=== PATIENT | male | born 1965 | race Caucasian/White ===

== ENCOUNTER 2017-01-23 07:00 | Day surgery (SDC) | payer MEDICARE, OTHER ==
[~2017-01-23] VITALS: Ht 180.3 cm; Wt 120.2 kg
[~2017-01-23 07:00] MED LIST: 0.9% Sodium Chloride 1,000 ML IV SCH; IBUP200C11 PO; Sodium Chloride LOK Flush 10 mL Syringe IV PRN; fentaNYL-PF 50 mCg/mL 2 mL Inj IVPUSH PRN
[2017-01-23 07:31] VITALS: BP 139/83; PULSE 63; RESP 16; O2SAT 95
--- NOTE | 2017-01-23 08:38 | PCM.ENDEGD ---
EGD Date of Service: Jan 23, 2017 Physician Robin Manning MD Pre Procedure Diagnosis: Dyspepsia Post Procedure Dx & Findings: Duodenitis Procedure Esophagogastroduodenoscopy PROCEDURE IN DETAIL: After proper sedation, Olympus video endoscope was inserted into patient's mouth and esophagus was successfully intubated. Scope introduced esophagus. Esophagus showed normal shiny whitish mucosa consistent with squamous cell component. Z line was intact at 40 cm from the incisors. Scope further advanced to the stomach. Stomach showed normal shiny mucosa with normal appearing rugae folds without any ulcer mass erosion. Cardia fundus body antrum pylorus were all visualized. Retroflexion was done. Stomach was easily inflated and deflatable using air. Scope further advanced to the distal duodenum. Duodenum revealed normal villous structures with normal appearing folds without any mass ulcer erosion. However did duodenal bulb revealed redness edema consistent with duodenitis. Biopsies obtained. Impression Duodenitis Recommendation NSAIDs should be stopped Prilosec 20 mg once a day for 8 weeks. Presedation Assessment Risks and Benefits Informed consent was obtained from the patient after all risks and benefits including but not limited to drug reaction, infection, pain, bleeding, perforation, as well as alternatives were discussed. Patient monitoring Continuous pulse oximetry, cardiac monitoring, blood pressure monitoring, IV access, and oxygen at 2L per nasal cannula. Complications There were no periprocedural complications identified. Post Procedure Plan Post Procedure Recommendations 1. Restrict activities today. 2. Resume normal activities in the morning. 3. Resume medications. 4. GERD behavioral modification: - Avoid fatty, acidic, spicy, large meals - Do not lie down after meals - Do not eat or drink anything for at least 2 1/2 hours before going to bed at night - Discontinue tobacco and alcohol - Decrease or avoid caffeine - Avoid chocolate and mints - Decrease weight - Avoid aspirin and non steroidal anti-inflammatory agents (NSAID) such as Aleve, Advil, Mobic, Naproxen, Ibuprofen, etc 5. Add proton pump inhibitor. Take 30 minutes before 1st meal of the day. 6. Patient informed of normal post procedure side effects as bloating, drowsiness, blood streaking in the stool 7. If gastric biopsy reveal H.pylori, continue with appropriate treatment 8. If small bowel biopsy reveals celiac, continue with appropriate treatment 9. Please don't hesitate to call me with any questions Robin Manning MD Jan 23, 2017 08:38
--- NOTE | 2017-01-23 08:39 | PCM.ENDCOL ---
Colonoscopy Date of Service: Jan 23, 2017 Physician Robin Manning MD Pre Procedure Diagnosis: Screening constipation Post Procedure Dx & Findings: Polyp hemorrhoids and diverticulosis Procedure Colonoscopy PROCEDURE IN DETAIL: Prep adequate Withdrawal time 17 minutes After unremarkable rectal examination the Olympus video colonoscope was inserted patient's anal canal and was advanced to cecum. Landmarks were identified including the ileocecal valve and appendiceal orifice. Scope was withdrawn systematically. Visualized colonic mucosa showed healthy shiny mucosa with normal healthy-appearing vasculature. In the sigmoid colon there was a 2 cm polyp with a stalk. This was removed completely using hot snare. One clip deployed. Patient had multiple diverticula lie in the sigmoid colon as well as in the ascending colon. In the rectum retroflexion was done which showed hemorrhoids. Anal canal was inspected carefully on the way out and hemorrhoids noted. Impression Polyp 1 status post complete removal. This was 2 cm. Diverticuli Hemorrhoids Recommendation Repeat colonoscopy 3 years Flexible sigmoidoscopy in 6 month Diverticular diet Presedation Assessment Risks and Benefits Informed consent was obtained from the patient after all risks and benefits including but not limited to drug reaction, infection, pain, bleeding, perforation, as well as alternatives were discussed. Patient monitoring Continuous pulse oximetry, cardiac monitoring, blood pressure monitoring, IV access, and oxygen at 2L per nasal cannula. Complications There were no periprocedural complications identified. Post Procedure Plan Post Procedure Recommendations 1. Restrict activities today. 2. Resume normal activities in the morning. 3. Resume medications. 4. Patient informed of normal post procedure side effects as bloating, drowsiness, blood streaking in the stool. 5. average risk CRCS. If colon polyps come back as: -Hyperplastic- can repeat colonoscopy in 10 years -Tubular adenoma- repeat colonoscopy in 5 years -Tubulovillous/villous adenoma- repeat colonoscopy in 3 years -If any dysplasia- return to clinic as soon as possible 6. Please don't hesitate to call me with any questions. Robin Manning MD Jan 23, 2017 08:39
[2017-01-23 08:42] VITALS: BP 130/75; PULSE 62; RESP 15; O2SAT 93
[2017-01-23 08:50] VITALS: BP 123/75; PULSE 61; RESP 15; O2SAT 92
[2017-01-23 09:00] VITALS: BP 118/65; PULSE 64; RESP 15; O2SAT 94
--- NOTE | 2017-01-25 16:40 | PATH ---
SURGICAL PATHOLOGY Attending Physician:Robin Manning M.D. CASE STATUS: Signed Out PATIENT NAME: BEVERLY CARRASCO PID: [id number] : 1965 DATE COLLECTED:01/23/2017 15:38 SPECIMEN: 1: Duodenum, Biopsy 2: Colon, Biopsy CLINICAL HISTORY: 1. DUODENUM 2. 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 Negative for evidence of celiac disease. Negative for dysplasia and malignancy. 2.SIGMOID COLON POLYP: LARGE POLYPOID TUBULAR ADENOMA. No definite stalk identified. ICD10 D12.5 GROSS DESCRIPTION: 1. Received in formalin, labeled with the patient's name and "duodenum" are two fragments of shaver soft tissue ranging in size from 0.1 x 0.1 x 0.1 cm to 0.2 x 0.1 x 0.1 cm. All fragments are totally submitted in cassette 1A 2. Received in formalin, labeled with the patient's name and "sigmoid colon polyp" is one fragment of shaver soft tissue measuring 1.5 x 1.0 x 1.0 cm. The fragment is trisected and totally submitted in cassette 2A. ([id number]) MICRO DESCRIPTION: See diagnosis. ICD-9 CODES: CPT CODES: 1: 89640 2: 59782 Electronically Signed Out Rashi Payne MD [facility]ology [facility] [address], [place] [address] Technical component performed at [facility], [facility] [address], [place], [address]
== END 2017-01-23 23:59 | disposition home or self-care (01) ==
LOC: END 07:00
PROVIDERS: ATTEND Internal Medicine
DX: Z12.11 Encounter for screening for malignant neoplasm of colon (principal); D12.5 Benign neoplasm of sigmoid colon; K57.30 Diverticulosis of large intestine without perforation or abscess without bleeding; K64.8 Other hemorrhoids; Z86.010 Personal history of colon polyps; Z80.0 Family history of malignant neoplasm of digestive organs; K59.00 Constipation, unspecified; K29.80 Duodenitis without bleeding
CPT/HCPCS: 43239; 45385; 99153; G0500; J3010; J7030